=== PATIENT | female | born 1990 | race Caucasian/White ===

== ENCOUNTER → 2020-10-06 | Outpatient (CLI) | payer OTHER ==
--- NOTE | 2020-10-06 17:11 | RAD ---
EXAM: Limited pelvic ultrasound. HISTORY: Vulvar mass. COMPARISON: None. FINDINGS: Sonographic evaluation of the site of palpable concern along the right aspect of the vulva was performed. This reveals a solid hypoechoic mass measuring 2.4 x 1.8 cm. There is extensive internal security manager al perfusion on Doppler. It is well-circumscribed without invasive characteristics. IMPRESSION: 1. Solid 2.4 cm mass at the site of concern. Depending on the location of this lesion, considerations include soft tissue neoplasm versus a cryptorchid gonad. MRI with and without contrast could further define its relationship to surrounding anatomy and clarify tissue of origin. Ongoing surgical manage ment is recommended. These findings were discussed with Dr. Valdes on 10/06/2020. Electronically signed by: Rand Lynn MD (10/06/2020 5:09 PM) [id number]
== END ==
LOC: US 15:38
PROVIDERS: ATTEND Obstetrics & Gynecology
DX: N90.9 Noninflammatory disorder of vulva and perineum, unspecified (principal)
CPT/HCPCS: 76857

== ENCOUNTER 2020-11-03 19:14 | Emergency (ER) | payer OTHER ==
[~2020-11-03] VITALS: Ht 162.6 cm; Wt 99.0 kg
--- NOTE | 2020-11-03 19:23 | PHYS DOC ---
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 She reports when she got home, she felt nauseous and began vomiting, reported as nonbloody and nonbilious. She reports that she feels miserable at this time because of the nausea. She was given Zofran with EMS on route to the emergency department which did not help. She denies any other palliative factors. She denies any pain from the surgery today, reports that she is unable to tolerate her p.o. analgesics. The patient denies diarrhea, fever, chills, chest pain, shortness of breath, abdominal pain, urinary symptoms, cough, recent trauma, or any other complaints. Review of Systems: Review of Systems: ROS otherwise negative except what was mentioned in HPI Heart Score: C/O Chest Pain: No Physical Exam: PE: Constitutional: No acute distress, non-toxic appearance. HENT: Atraumatic, bilateral external ears normal, nose normal. Eyes: PERRLA, EOMI, conjunctiva normal, no discharge. Neck: Normal range of motion, supple, no stridor. Cardiovascular: Heart rate regular rhythm. 2+ radial pulses Lungs & Thorax: No respiratory distress, symmetrical expansion. Abdomen: Soft, no tenderness Skin: Warm, dry. Extremities: No tenderness, no cyanosis, ROM intact, no edema. Neurologic: Alert and oriented X 3, normal motor function, normal sensory function, no focal deficits noted. Non ataxic gait. GCS 15. Psychologic: Affect normal, judgment normal, mood normal. Current Patient Data: Labs: Laboratory Tests Test 11/03/20 19:45 White Blood Count 15.9 x10^3/uL (4.0-11.0) Red Blood Count 4.46 x10^6/uL (3.50-5.40) Hemoglobin 12.8 g/dL (12.0-15.5) Hematocrit 37.4 % (36.0-47.0) Mean Corpuscular Volume 84 fL (79-100) Mean Corpuscular Hemoglobin 29 pg (25-35) Mean Corpuscular Hemoglobin Concent 34 g/dL (31-37) Red Cell Distribution Width 15.5 % (11.5-14.5) Platelet Count 215 x10^3/uL (140-400) Neutrophils (%) (Auto) 93 % (31-73) Lymphocytes (%) (Auto) 4 % (24-48) Monocytes (%) (Auto) 3 % (0-9) Eosinophils (%) (Auto) 0 % (0-3) Basophils (%) (Auto) 0 % (0-3) Neutrophils # (Auto) 14.8 x10^3/uL (1.8-7.7) Lymphocytes # (Auto) 0.6 x10^3/uL (1.0-4.8) Monocytes # (Auto) 0.4 x10^3/uL (0.0-1.1) Eosinophils # (Auto) 0.0 x10^3/uL (0.0-0.7) Basophils # (Auto) 0.1 x10^3/uL (0.0-0.2) Segmented Neutrophils % 87 % (35-66) Band Neutrophils % 7 % (0-9) Lymphocytes % 5 % (24-48) Monocytes % 1 % (0-10) Platelet Estimate Adequate (ADEQUATE) Sodium Level 138 mmol/L (136-145) Potassium Level 4.1 mmol/L (3.5-5.1) Chloride Level 103 mmol/L (98-107) Carbon Dioxide Level 24 mmol/L (21-32) Anion Gap 11 (6-14) Blood Urea Nitrogen 9 mg/dL (7-20) Creatinine 0.7 mg/dL (0.6-1.0) Estimated GFR (Cockcroft-Gault) 98.3 Glucose Level 136 mg/dL (70-99) Calcium Level 8.8 mg/dL (8.5-10.1) Vital Signs: Vital Signs Date Time Temp Pulse Resp B/P (MAP) Pulse Ox O2 Delivery O2 Flow Rate FiO2 11/03/20 20:30 83 19 119/70 (86) 96 11/03/20 19:45 100 19 119/77 (91) 95 11/03/20 19:18 98.1 96 18 129/62 (84) 97 Room Air 98.1 Course & Med Decision Making: Course & Med Decision Making Patient was offered admission and transfer to [facility] where she had her surgery performed, she would prefer to go home with Reglan. She feels much better at this time after fluids and Reglan in the emergency department. She was able to pass a p.o. challenge in the emergency department and understands all of her return precautions. Departure Departure Impression: Primary Impression: Nausea & vomiting Disposition: HOME / SELF CARE / HOMELESS Condition: IMPROVED Referrals: OLIVER GARCIA MD (PCP) Patient Instructions: Nausea and Vomiting, [id number] Additional Instructions: You were seen in the emergency department for nausea and vomiting. You could have a viral illness which should resolve in the next few days to a week. Drink at least 6-8 glasses of water per day to help stay hydrated if you can tolerate drinking water. You may also supplement with gatorade. Please avoid alcohol while you are ill. You should return to the ED if you develop abdominal pain, fever > 100.3, black/bloody stools, black/bloody vomiting, cannot eat or drink without vomiting, or have any other new or concerning symptoms. You have been given a prescription for Reglan, which is sent to the [facility] in [facility]. Please pick and shovel man this prescription and take as prescribed. Scripts Metoclopramide Hcl (REGLAN) 5 Mg Tablet 5 MG PO TID PRN for NAUSEA for 10 Days, #30 TAB 0 Refills Prov: MC CHAIREZ DO 11/03/20 MC CHAIREZ DO Nov 03, 2020 19:23
[2020-11-03] MEDS ORDERED: METOCLOPRAMIDE HCL 10 MG/2 ML VIAL. IVP ONE (19:30)
[2020-11-03] MEDS ORDERED: IV NORMAL SALINE 1000ML BAG 1,000 ML IV ONE (19:30)
[2020-11-03 19:52] LABS: BASO # 0.1 x10^3/uL (0.0-0.2); BASO % 0 % (0-3); EOS % 0 % (0-3); HEMATOCRIT 37.4 % (36.0-47.0); HEMOGLOBIN 12.8 g/dL (12.0-15.5); LYMPH # 0.6 x10^3/uL (1.0-4.8); LYMPH % 4 % (24-48); MEAN CORPUSCULAR HEMOGLOBIN 29 pg (25-35); MEAN CORPUSCULAR HGB CONC 34 g/dL (31-37); MEAN CORPUSCULAR VOLUME 84 fL (79-100); MONO # 0.4 x10^3/uL (0.0-1.1); MONO % 3 % (0-9); NEUT # 14.8 x10^3/uL (1.8-7.7); NEUT % 93 % (31-73); PLATELET COUNT 215 x10^3/uL (140-400); RED BLOOD COUNT 4.46 x10^6/uL (3.50-5.40); RED CELL DISTRIBUTION WIDTH 15.5 % (11.5-14.5); WHITE BLOOD COUNT 15.9 x10^3/uL (4.0-11.0)
[2020-11-03 19:59] LABS: CALCIUM 8.8 mg/dL (8.5-10.1); CREATININE 0.7 mg/dL (0.6-1.0); GFR 98.3; POTASSIUM 4.1 mmol/L (3.5-5.1)
[2020-11-03 20:35] LABS: % BANDS 7 % (0-9); % LYMPHS 5 % (24-48); % MONOS 1 % (0-10); % SEGS 87 % (35-66)
[2020-11-03 20:36] LABS: PLT ESTIMATE ADEQUATE (ADEQUATE)
[2020-11-03] MEDS ORDERED: METO5TAB55 PO (20:40)
[2020-11-03 21:13] VITALS: BP 119/78
== END 2020-11-03 21:29 | disposition home or self-care (01) ==
LOC: ER 19:14
DX: R11.2 Nausea with vomiting, unspecified (principal)
CPT/HCPCS: 36415; 80048; 85007; 85025; 96361; 96374; 99285; J2765; J7030